=== PATIENT | female | born 1975 | race Caucasian/White ===

== ENCOUNTER 2017-03-27 16:02 | Emergency (ER) | payer OTHER ==
[2017-03-27 16:18] VITALS: BP 139/80
[2017-03-27] MEDS ORDERED: Ketorolac INJ* 60 MG/2 ML VIAL IM ONE (18:03)
--- NOTE | 2017-03-27 18:46 | ED ---
Upper Extremity Pain - HPI Summary HPI Summary: Patient presents with left shoulder pain that became acute yesterday. She has had twinges of pain for years, but without known cause it became severe. She has pain when she moves the arm away from her body or forward. She denies N/T, swelling or redness. - History of Current Complaint Chief Complaint: EDShoulderClavicleInj Stated Complaint: SHOULDER INJURY Hx Obtained From: Patient, Family/Biology Intern Mechanism Of Injury: Unknown Onset/Duration: Started Days Ago - 1 Timing: Constant Severity Initially: Severe Severity Currently: Severe Pain Location: Shoulder Character: Sharp Aggravating Factor(s): Movement Alleviating Factor(s): Nothing Associated Signs & Symptoms: Positive: Negative Related History: Dominant Hand Right - Allergies/Home Medications Allergies/Adverse Reactions: Allergies Allergy/AdvReac Type Severity Reaction Status Date / Time No Known Allergies Allergy Verified 03/27/17 16:18 PMH/Surg Hx/FS Hx/Imm Hx Previously Healthy: Yes Infectious Disease History: No Infectious Disease History: Denies: Traveled Outside the in Last 30 Days - Family History Known Family History: Positive: None - Social History Occupation: Employed Part-time Lives: With Family Alcohol Use: None Substance Use Type: Reports: None Smoking Status (MU): Never Smoked Tobacco Review of Systems Negative: Fever, Chills Positive: Myalgia, Decreased ROM Negative: Weakness, Paresthesia, Numbness All Other Systems Reviewed And Are Negative: Yes Physical Exam Triage Information Reviewed: Yes Vital Signs On Initial Exam: Initial Vitals Temp Pulse Resp BP Pulse Ox 98.1 F 86 18 139/80 100 03/27/17 16:10 03/27/17 16:10 03/27/17 16:10 03/27/17 16:10 03/27/17 16:10 Vital Signs Reviewed: Yes Appearance: Positive: Well-Appearing, Well-Nourished, Pain Distress Skin: Positive: Warm, Skin Color Reflects Adequate Perfusion, Dry, Soft Head/Face: Positive: Normal Head/Face Inspection Eyes: Positive: EOMI, ROC, Conjunctiva Clear ENT: Positive: Hearing grossly normal Respiratory/Lung Sounds: Positive: Breath Sounds Present Cardiovascular: Positive: RRR Musculoskeletal: Positive: Limited @ - left shoulder FF to 10, abduction 10, extension 20 all limited by pain; ER 20, IR left hip; elbow, wrist and hand FROM , Pain @ - TTP left deltoid; non-tender bicipital groove, scapular spine and AC joint. Neurological: Positive: Sensory/Motor Intact, Alert, Oriented to Person Place, Time, NV Bundle Intact Distally Psychiatric: Positive: Affect/Mood Appropriate AVPU Assessment: Alert Diagnostics - Vital Signs Vital Signs Temp Pulse Resp BP Pulse Ox 03/27/17 16:46 98.1 F 86 18 139/80 100 03/27/17 16:10 98.1 F 86 18 139/80 100 - Laboratory Lab Statement: Any lab studies that have been ordered have been reviewed, and results considered in the medical decision making process. - Radiology No standard instances Xray Interpretation: Positive (See Comments) Radiology Interpretation Completed By: Radiologist - calcific tendonitis Re-Evaluation - Re-Evaluation First Eval Re-Evaluation Time: 18:55 Change: Improved - Pain improved with toradol injection Course/Dx - Diagnoses Differential Diagnosis/HQI/PQRI: Positive: Arthritis, Bursitis, Contusion, Fracture (Closed), Hematoma, Laceration, Strain, Sprain Provider Diagnoses: Calcific tendonitis of left shoulder Discharge - Discharge Plan Condition: Stable Disposition: HOME Patient Education Materials: Calcific Tendinitis (ED) Forms: *Work Release Referrals: Juan Ramon Kingsley MD [Primary Care Provider] - Additional Instructions: Please use your sling for comfort. Begin taking ibuprofen 600mg three times daily with meals tomorrow evening for the next 3-5 days. Follow-up with your primary care provider if symptoms have not begun to improve in the next 7-10 days. Use ice and heat as needed. Perform gentle range of motion exercises daily to avoid stiffness. Return to the emergency department if symptoms worsen.
--- NOTE | 2017-03-27 18:53 | RAD ---
INDICATION: Pain, calcific tendinitis. TECHNIQUE: 3 views of the left shoulder were obtained. FINDINGS: The bones are in normal alignment. No fracture is seen. There are prominent calcifications adjacent to the superolateral aspect of the humeral head suggestive of calcific tendinitis.] Spaces appear maintained. IMPRESSION: FINDINGS SUGGESTIVE OF CALCIFIC TENDINITIS.
== END 2017-03-27 19:17 | disposition home or self-care (01) ==
LOC: ED 16:02
DX: M75.32 Calcific tendinitis of left shoulder (principal); M25.512 Pain in left shoulder
CPT/HCPCS: 99281; J1885